=== PATIENT | female | born 1995 | race Caucasian/White ===

== ENCOUNTER 2020-08-28 11:50 | Emergency (ER) | payer OTHER ==
[~2020-08-28] VITALS: Ht 154.9 cm; Wt 47.6 kg
[2020-08-28] MEDS ORDERED: MORGIDOX100 MG (12:07)
[2020-08-28] MEDS ORDERED: MUPIROCIN1 G1 TOP (14:01)
[2020-08-28] MEDS ORDERED: KETO10TA2 PO (14:01)
[2020-08-28] MEDS ORDERED: HIBICLENS118 ML TOP (14:01)
== END 2020-08-28 14:15 | disposition home or self-care (01) ==
LOC: ER 11:50
DX: L03.111 Cellulitis of right axilla (principal)